=== PATIENT | male | born 1980 | race Caucasian/White ===

== ENCOUNTER 2021-03-11 15:37 | Emergency (ER) | payer OTHER ==
[2021-03-11] MEDS ORDERED: CEPHALEXIN500 MG PO ×2 (16:58→17:04)
== END 2021-03-11 17:48 | disposition home or self-care (01) ==
LOC: FER 15:37
DX: S01.81XA Laceration without foreign body of other part of head, initial encounter (principal); I10 Essential (primary) hypertension; Z23 Encounter for immunization; X58.XXXA Exposure to other specified factors, initial encounter; Y92.009 Unspecified place in unspecified non-institutional (private) residence as the place of occurrence of the external cause
CPT/HCPCS: 90471; 90715